=== PATIENT | female | born 1950 | race Caucasian/White ===

== ENCOUNTER → 2016-09-09 | Outpatient (CLI) | payer MEDICARE, BC ==
[~2016-09-09] MED LIST: BACTRIM DS TABL1 TA1 PO; DARVOCET-N 1001 TAB PO; LISINOPRIL PO; TESSALON200 MG PO; ZOCOR PO
--- NOTE | ~2016-09-09 | MY11 ---
[facility]. [facility] A Service of [facility] & [facility] RADIOLOGY TEXT RESULTS PATIENT: CAMDEN ODOM LOCATION: [facility] [place] : 50 UNIT #: [id number] AGE: [address]: Geovanna Hicks APRN SEX: F ORDER DR: [id number] [address] [address] [id number] O MR#: [id number] Acc #: [id number] NAME: CAMDEN ODOM : 1950 SEX: F STUDY DATE/TIME: 09/09/2016 14:16 UNIT: [facility] [place] ROOM: STUDY DESCRIPTION: MY Mammogram Screening Dig Tolu Attending Physician: Geovanna Hicks A.P.R.N. Referring Physician: Geovanna Hicks A.P.R.N. Ordering Physician: Geovanna Hicks A.P.R.N. Primary Care Physician: Geovanna Hicks A.P.R.N. MEDICAL IMAGING REPORT This report is preliminary unless electronic signature is present. EXAM Bilateral digital screening mammogram with CAD 09/09/2016 HISTORY 66-year-old female with history of left breast cancer with lumpectomy in 1996. History of radiation therapy. No family history of breast cancer. No current complaints. COMPARISON Bilateral screening mammogram 08/28/2015, 07/28/2013. FINDINGS CC and MLO views were obtained of each breast utilizing digital technique and reviewed with a FDA-approved CAD device. Extended craniocaudal lateral views were also obtained of each breast. Scattered fibroglandular densities are present bilaterally. No new or suspicious nodule is seen. Benign-appearing round calcifications are present bilaterally. No suspicious clustered microcalcifications. No architectural distortion. Benign-appearing lumpectomy scar in the left axillary tail, best depicted on the extended craniocaudal lateral view, unchanged from prior. IMPRESSION 1. BIRADS 2. Benign findings. Lumpectomy changes near the left axillary tail, unchanged. There are no new findings to suggest recurrent malignancy. Routine bilateral screening mammogram is recommended in 1 year. BIRADS: 2 Benign Finding. STS. [facility] A Service of [facility] & [facility] RADIOLOGY TEXT RESULTS PATIENT: CAMDEN ODOM LOCATION: [facility] #: [id number] : 50 UNIT #: [id number] AGE: [address]: Geovanna Hicks APRN SEX: F ORDER DR: Patients over the age of 40 are entered into a reminder system with target due date for the next mammogram. A result letter will also be sent to the patient. Dictated by... Geni Dubose M.D. THIS IS AN ELECTRONICALLY VERIFIED REPORT Geni Dubose M.D. at 09/12/2016 8:30 AM PENNY/awa TD: 09/09/2016 18:44 JOB #: [id number] MEDICAL IMAGING REPORT Page 1 of 1
== END | disposition home or self-care (01) ==
LOC: SMAM 08-30 10:30
DX: Z12.31 Encounter for screening mammogram for malignant neoplasm of breast (principal); Z85.3 Personal history of malignant neoplasm of breast; Z92.3 Personal history of irradiation; Z98.890 Other specified postprocedural states
CPT/HCPCS: G0202

== ENCOUNTER → 2016-09-11 | Outpatient (CLI) | payer MEDICARE, BC ==
--- NOTE | ~2016-09-11 | BD1 ---
[facility] A Service of [facility] & [facility] RADIOLOGY TEXT RESULTS PATIENT: CAMDEN ODOM LOCATION: [facility] : 50 UNIT #: [id number] AGE: [address]: Geovanna Hicks APRN SEX: F ORDER DR: [id number] [address] [address] [id number] O MR#: [id number] Acc #: [id number] NAME: CAMDEN ODOM : 1950 SEX: F STUDY DATE/TIME: 09/11/2016 10:35 UNIT: SRAD ROOM: STUDY DESCRIPTION: Dexa Bone Dens 1+ Site Attending Physician: Geovanna Hicks A.P.R.N. Referring Physician: Geovanna Hicks A.P.R.N. Ordering Physician: Geovanna Hicks A.P.R.N. Primary Care Physician: Geovanna Hicks A.P.R.N. MEDICAL IMAGING REPORT This report is preliminary unless electronic signature is present. EXAM DEXA scan 09/11/2016 HISTORY Status post menopause with no hormone replacement therapy. Osteopenia. Arthritis. Hypertension with blood pressure medication. FINDINGS Bone mineral density in the lumbar spine from L1-L4 is 1.385 g/cm2 which is 1.7 standard deviations above the mean when compared to the young adult reference population which is within the range of normal. This is 2.9 standard deviations above the mean when compared to the age-matched population. Bone mineral density in the left femoral neck was 0.879 g/cm2 which is 1.1 standard deviations below the mean when compared to the young adult reference population which is characteristic of osteopenia. This is 0.1 standard deviations above the mean when compared to the age-matched population. Bone mineral density in the right femoral neck was 0.934 g/cm2 which is 0.7 standard deviations below the mean when compared to the young adult reference population which is within the range of normal. This is 0.5 standard deviations above the mean when compared to the age-matched population. IMPRESSION Bone mineral density in the lumbar spine and the right hip within the range of normal and within the left hip characteristic of osteopenia. Dictated by... Jonathan Rich M.D. THIS IS AN ELECTRONICALLY VERIFIED REPORT Jonathan Rich M.D. at 09/12/2016 8:02 AM [facility] A Service of [facility] & [facility] RADIOLOGY TEXT RESULTS PATIENT: CAMDEN ODOM LOCATION: [facility] : 50 UNIT #: [id number] AGE: [address]: Geovanna Hicks APRN SEX: F ORDER DR: Javire TD: 09/11/2016 13:36 JOB #: [id number] MEDICAL IMAGING REPORT Page 1 of 1
== END | disposition home or self-care (01) ==
LOC: SRAD 10:00
DX: Z13.820 Encounter for screening for osteoporosis (principal); I10 Essential (primary) hypertension; Z78.0 Asymptomatic menopausal state
CPT/HCPCS: 77080

== ENCOUNTER → 2016-12-31 | Outpatient (CLI) | payer MEDICARE, BC ==
--- NOTE | ~2016-12-31 | US37 ---
[facility] A Service of [facility] & [facility] RADIOLOGY TEXT RESULTS PATIENT: CAMDEN ODOM LOCATION: [facility] : 50 UNIT #: [id number] AGE: [address]: Geovanna Hicks APRN SEX: F ORDER DR: [id number] [address] [address] [id number] O MR#: [id number] Acc #: [id number] NAME: CAMDEN ODOM : 1950 SEX: F STUDY DATE/TIME: 12/31/2016 10:06 UNIT: SCT ROOM: STUDY DESCRIPTION: US Carotid W/Doppler Bilateral Attending Physician: Geovanna Hicks A.P.R.N. Referring Physician: Geovanna Hicks A.P.R.N. Ordering Physician: Geovanna Hicks A.P.R.N. Primary Care Physician: Geovanna Hicks A.P.R.N. MEDICAL IMAGING REPORT This report is preliminary unless electronic signature is present. EXAM Bilateral carotid Doppler HISTORY Syncope FINDINGS The right common internal and external carotid arteries are patent. There is heterogeneous type material within the proximal internal and external carotid arteries. Velocity of the common carotid artery is 75 cm/second. Peak systolic velocity of the right proximal internal carotid artery is 59 cm/second with a end diastolic velocity of 16 cm/second for an ICA:CCA of 0.8. External carotid artery with a velocity of 102 cm/second. The vertebral artery is visualized with antegrade flow. The left common internal and external carotid arteries are patent with mild heterogeneous plaque noted in the internal and external carotid arteries. Velocity of the common carotid artery is 81 cm/second. Peak systolic velocity of the left proximal internal carotid artery is 74 cm/second with an end diastolic velocity of 20 cm/second for an ICA:CCA of 0.9. External carotid artery velocity of 89 cm/second. The vertebral artery is visualized with antegrade flow. IMPRESSION 1. Minimal plaque with less than 50% stenosis of the right and left internal carotid arteries. 2. No stenosis of the external carotid arteries. 3. Antegrade flow of the vertebral arteries. STS. [facility] A Service of [facility] & [facility] RADIOLOGY TEXT RESULTS PATIENT: CAMDEN ODOM [id number] : 50 UNIT #: [id number] AGE: [address]: Geovanna Hicks APRN SEX: F ORDER DR: Dictated by... Joaquin Lopez M.D. THIS IS AN ELECTRONICALLY VERIFIED REPORT Joaquin Lopez M.D. at 01/07/2017 4:51 PM FPN/shaheed TD: 12/31/2016 21:57 JOB #: [id number] MEDICAL IMAGING REPORT Page 1 of 1
--- NOTE | ~2016-12-31 | CT71 ---
[facility] A Service of [facility] RADIOLOGY TEXT RESULTS PATIENT: CAMDEN ODOM LOCATION: [facility] : 50 UNIT #: [id number] AGE: [address]: Geovanna Hicks APRN SEX: F ORDER DR: [id number] [address] [address] [id number] O MR#: [id number] Acc #: [id number] NAME: CAMDEN ODOM : 1950 SEX: F STUDY DATE/TIME: 12/31/2016 9:44 UNIT: [facility] ROOM: STUDY DESCRIPTION: CT Head Wo Contrast Attending Physician: Geovanna Hicks A.P.R.N. Referring Physician: Geovanna Hicks A.P.R.N. Ordering Physician: Geovanna Hicks A.P.R.N. Primary Care Physician: Geovanna Hicks A.P.R.N. MEDICAL IMAGING REPORT This report is preliminary unless electronic signature is present. EXAM Head CT, no contrast, 12/31/2016. PROCEDURE Axial unenhanced head CT. This CT exam was performed with one or more of the following radiation dose reduction techniques: automatic exposure control, adjustment of mA and/or kV according to patient size, and iterative reconstruction. COMPARISON Prior head CT dated 03/05/2016. CLINICAL HISTORY One month history of episodes of near syncope. FINDINGS There is no intracranial hemorrhage or mass. There is no hydrocephalus or extraaxial fluid collection. Brain parenchymal density is normal. Incidentally noted subinsular prominent perivascular space on the right unchanged since the prior study. The extracranial soft tissues are unremarkable and the skull base and calvaria are normal. IMPRESSION Normal negative unenhanced head CT, no acute abnormality and no interval change since the exam of 03/05/2016. Dictated by... Hilario Beard M.D. THIS IS AN ELECTRONICALLY VERIFIED REPORT Hilario Beard M.D. at 01/02/2017 2:08 PM [facility] A Service of [facility] RADIOLOGY TEXT RESULTS PATIENT: CAMDEN ODOM LOCATION: [facility] #: [id number] : 50 UNIT #: [id number] AGE: [address]: Geovanna Hicks APRN SEX: F ORDER DR: Margarito TD: 12/31/2016 21:14 JOB #: [id number] MEDICAL IMAGING REPORT Page 1 of 1
== END | disposition home or self-care (01) ==
LOC: SCT 09:38
DX: R55 Syncope and collapse (principal)
CPT/HCPCS: 70450; 93880